=== PATIENT | female | born 1975 | race African-American/Black ===

== ENCOUNTER 2018-04-07 17:08 | Inpatient (IN) | payer OTHER ==
[2018-04-07] MEDS ORDERED: NS 0.9% 1000 ML** 1,000 ML IV ONE (21:04)
--- NOTE | 2018-04-07 21:05 | ED ---
GI/ HPI - HPI Summary HPI Summary: 42 year old female presents with right flank pain today. States she was diagnosed with UTI 2 days ago by her primary. She states she has taken 4 doses of bactrim. She states that urgency and dysuria continues to persist even on antibiotics. She denies any fevers. She admits to little bit nausea but denies any vomiting. she denies any abnormal vaginal discharge. she denies any cough, chest pain, or SOB. denies any history of kidney stones. She denies any history of kidney infections. She has a history of seizures. - History of Current Complaint Chief Complaint: EDFlankPain Time Seen by Provider: 04/07/18 20:54 Stated Complaint: RIGHT FLANK PAIN Hx Last Menstrual Period: 02/19/16 Pain Intensity: 0 - Allergy/Home Medications Allergies/Adverse Reactions: Allergies Allergy/AdvReac Type Severity Reaction Status Date / Time No Known Allergies Allergy Verified 04/07/18 17:26 Home Medications: Home Medications Adalimumab (NF) [Humira Pen (NF)] 40 mg SUBCUT DAILY 04/07/18 [History Confirmed 04/07/18] Folic Acid 1 mg PO DAILY 04/07/18 [History Confirmed 04/07/18] levETIRAcetam [Levetiracetam ER] 750 mg PO BID 04/07/18 [History Confirmed 04/07] PMH/Surg Hx/FS Hx/Imm Hx Endocrine/Hematology History: Denies: Hx Diabetes, Hx Thyroid Disease Cardiovascular History: Denies: Hx Hypertension, Hx Pacemaker/ICD Respiratory History: Denies: Hx Asthma, Hx Chronic Obstructive Pulmonary Disease (COPD) GI History: Denies: Hx Ulcer History: Denies: Hx Dialysis, Hx Renal Disease Sensory History: Denies: Hx Hearing Aid Neurological History: Reports: Hx Seizures Psychiatric History: Denies: Hx Panic Disorder - Cancer History Hx Chemotherapy: No Hx Radiation Therapy: No - Surgical History Surgery Procedure, Year, and Place: 2000 YRS AGO. D&C 09/2012 Infectious Disease History: No Infectious Disease History: Denies: Hx Clostridium Difficile, Hx Hepatitis, Hx Human Immunodeficiency Virus (HIV), Hx Shingles, Hx Tuberculosis, Traveled Outside the [place] in Last 30 Days - Family History Known Family History: Positive: None Family History: no cardio vascular disease in family lineage - Social History Alcohol Use: None Substance Use Type: Reports: None Smoking Status (MU): Never Smoked Tobacco Have You Smoked in the Last Year: No Review of Systems Negative: Fever Negative: Chest Pain Negative: Shortness Of Breath Positive: Nausea. Negative: Abdominal Pain, Vomiting, Diarrhea Positive: dysuria, flank pain All Other Systems Reviewed And Are Negative: Yes Physical Exam Triage Information Reviewed: Yes Vital Signs On Initial Exam: Initial Vitals Temp Pulse Resp BP Pulse Ox 97.3 F 81 16 121/70 99 04/07/18 17:23 04/07/18 17:23 04/07/18 17:23 04/07/18 17:23 04/07/18 17:23 Vital Signs Reviewed: Yes Appearance: Positive: Well-Appearing Skin: Positive: Warm, Dry Head/Face: Positive: Normal Head/Face Inspection Eyes: Positive: Normal, Conjunctiva Clear ENT: Positive: Pharynx normal Respiratory/Lung Sounds: Positive: Clear to Auscultation, Breath Sounds Present Cardiovascular: Positive: Normal, RRR Abdomen Description: Positive: Nontender, Soft, CVA Tenderness (R). Negative: CVA Tenderness (L) Bowel Sounds: Positive: Present Musculoskeletal: Positive: Normal Neurological: Positive: Normal Psychiatric: Positive: Normal Diagnostics - Vital Signs Vital Signs Temp Pulse Resp BP Pulse Ox 04/07/18 19:54 97.5 F 74 16 107/62 100 04/07/18 17:23 97.3 F 81 16 121/70 99 - Laboratory Result Diagrams: 04/07/18 21:28 04/07/18 21:28 Lab Statement: Any lab studies that have been ordered have been reviewed, and results considered in the medical decision making process. - CT abd CT Interpretation Completed By: Radiologist Summary of CT Findings: IMPRESSION: 1. Findings suggesting recently passed or non-radiopaque right ureteral. calculus. 2. Left nephrolithiasis. GIGU Course/Dx - Course Course Of Treatment: 42 year old female presents with right flank pain today. She was dx with UTI and for the past 2 days has been on Bactrim. No fevers. Notes nausea. On exam tenderness in the right flank. wbc 12. crp elevated. Urine shows a UTI. CT shows straining likely due to pyelo. Gave dosed of Rocephin. Discussed with hospitalist who agreed to admit due to failing outpatient treatment. - Diagnoses Differential Diagnoses - Female: Pyelonephritis, Urinary Tract Infection, Ureteral Calculi Provider Diagnoses: Pyelonephritis Discharge - Sign-Out/Discharge Documenting (check all that apply): Patient Departure - Discharge Plan Condition: Stable Disposition: ADMITTED TO [facility] - Billing Disposition and Condition Condition: STABLE Disposition: Admitted to [facility]
[2018-04-07 21:14] LABS: Urine Appearance Cloudy; Urine Bacteria 1+ (Absent); Urine Bilirubin Negative (Negative); Urine Blood 2+ (Negative); Urine Color Yellow; Urine Glucose Negative (Negative); Urine Ketones 1+ (Negative); Urine Nitrite Negative (Negative); Urine Protein 2+(100 mg/dL) (Negative); Urine Red Blood Cell 3+(>10/hpf) (Absent); Urine Specific Gravity 1.012 (1.010-1.030); Urine Squamous Epithelial Cell Present (Absent); Urine Urobilinogen Negative (Negative); Urine White Blood Cell 3+(>20/hpf) (Absent)
[2018-04-07 21:39] LABS: ABS Basophils 0.1 10^3/ul (0-0.2); ABS Eosinophils 0.1 10^3/ul (0-0.6); ABS Lymphocytes 3.3 10^3/ul (1.0-4.8); ABS Monocytes 0.6 10^3/ul (0-0.8); ABS Neutrophils 8.4 10^3/ul (1.5-7.7); ABS Nucleated RBC 0 10^3/ul; Eosinophil % 0.7 %; Hematocrit 38 % (35-47); Hemoglobin 12.1 g/dl (12.0-16.0); Lymphocyte % 26.2 %; Mean Corpuscular HGB Conc 32 g/dl (31-36); Mean Corpuscular Hemoglobin 26 pg (27-31); Mean Corpuscular Volume 80 fL (80-97); Mean Platelet Volume 8.4 fL (7.4-10.4); Nucleated Red Blood Cells % 0; Platelet Count 237 10^3/ul (150-450); Red Cell Distribution Width 14 % (10.5-15); White Blood Count 12.4 10^3/ul (3.5-10.8)
[2018-04-07] MEDS ORDERED: cefTRIAXone(*) 1 GM in NS 0.9% 50 ML* 50 ML IVPB ONE (21:41)
[2018-04-07 21:57] LABS: Albumin 4.2 g/dL (3.2-5.2); Albumin/Globulin Ratio 1.4 (1-3); BUN/Creatinine Ratio 11.4 (8-20); C Reactive Protein 30.04 mg/L (<8.01); Calcium 9.1 mg/dL (8.6-10.3); EGFR African American 86.1 (>60); EGFR Non-African American 71.2 (>60); Globulin 2.9 g/dL (2-4); Potassium 3.9 mmol/L (3.5-5.0); Total Bilirubin 0.4 mg/dL (0.2-1.0); Total Protein 7.1 g/dL (6.4-8.9)
[2018-04-07 22:04] LABS: HCG Pregnancy 4.24 mIU/mL
[2018-04-07] MEDS ORDERED: Ketorolac INJ* 30 MG/ML 1 ML VIAL IV PUSH ONE (22:31)
[2018-04-08] MEDS ORDERED: Ondansetron INJ* 2 MG/ML VIAL IV PRN (01:13)
[2018-04-08] MEDS ORDERED: Acetaminophen TAB* 325 MG PO PRN (01:13)
[2018-04-08] MEDS ORDERED: Morphine VIAL* 4 MG/ML VIAL (1 ml vial) IV PRN (01:14)
[2018-04-08] MEDS: NS 0.9% 1000 ML** 1,000 ML IV SCH ×3 (03:04→21:33)
--- NOTE | 2018-04-08 03:40 | HP ---
CC: Dr. Steven Shultz HISTORY AND PHYSICAL: DATE OF ADMISSION: 04/08/18 PRIMARY CARE PROVIDER: Dr. Steven Shultz. CHIEF COMPLAINT: Right flank pain and burning with urination. HISTORY OF PRESENT ILLNESS: This is a 42-year-old female with past medical history of seizure disord er, rheumatoid arthritis, on Humira, who now presents to the emergency room because of right flank pa in associated with dysuria. The patient states that about 2 days ago she was started on Bactrim for urinary tract infection; however, she comes to the emergency room now because her symptoms are persis tent and getting worse. The patient reports that she has been having right flank pain, progressively worsening, 8/10, dull pain, with no radiation, no exaggerating factor, partially relieved by pain me dication. This is associated with chills, nausea. There is no fever. She is having burning upon ur ination and some hesitancy with urination. PAST MEDICAL HISTORY: 1. Seizures. 2. Rheumatoid arthritis. PAST SURGICAL HISTORY: . MEDICATIONS: Include: 1. Keppra 750 mg twice a day. 2. Folic acid 1 mg daily. 3. Humira 40 mg every 2 weeks. ALLERGIES: No known drug allergies. FAMILY HISTORY: Mother: Pre-diabetes. Father: Diabetes, heart issues. SOCIAL HISTORY: The patient lives at home, does not smoke, occasional alcohol use. REVIEW OF SYSTEMS: There is no fever; however, she is having chills. No changes in her vision or he aring, no sore throat. No chest pain, no palpitations, no shortness of breath, no cough, no sputum p roduction. There is no abdominal pain. She is having flank pain, dysuria, and hesitancy as described above as well as urgency. She does not have any headaches, no focal weakness or numbness, no rashes or lesions. A full review of systems was done, otherwise is negative and is listed already. PHYSICAL EXAMINATION GENERAL: This is a well-developed, well-nourished, overweight female, lying in an ER stretcher, in n o acute distress. VITAL SIGNS: Blood pressure of 107/65, heart rate of 76, respiratory rate of 18, pulse ox of 98% on room air, temperature of 98.8 Fahrenheit, T-max of 98.8. HEENT: Pupils are equal, round, reactive to light. Atraumatic, normocephalic. LUNGS: There is no tachypnea. No use of accessory muscles. Lungs are clear to auscultation bilater ally without any wheezing, rales, or rhonchi. HEART: There is no chest wall tenderness. Regular rate and rhythm. No murmurs, rubs, or gallops. ABDOMEN: Bowel sounds are normoactive in all 4 quadrants. Abdomen is soft, nontender, nondistended. There is right CVA tenderness. There is no suprapubic tenderness, no suprapubic fullness. EXTREMITIES: No lower extremity edema, no calf tenderness. NEUROLOGIC: Alert and oriented x3 with no focal neurological deficits. SKIN: There are no rashes or lesions appreciated. DIAGNOSTIC STUDIES/LAB DATA: White blood cell count of 12.4, platelets of 237, hemoglobin of 12.1, absolute neutrophil count of 8.4. Sodium of 134, potassium of 3.9, BUN of 10, creatinine of 0.88, CR P of 30.04, lactic acid of 0.5. Urinalysis shows protein of 2+, she is having leukocyte esterase of 3+, urine wbc of 3, urine bacteria 1+, rbc of 3+. The patient underwent an abdomen and pelvis CAT scan, which showed findings suggestive of recently pa ssed, nonradiopaque right ureteral calculus and left nephrolithiasis, there is no evidence or mention of hydronephrosis. IMPRESSION AND PLAN: 1. The patient is having complicated urinary tract infection, failed outpatient therapy. For this r susan, we will make this patient inpatient status, start the patient on IV fluids, IV Rocephin, follo w up cultures. 2. Kidney stones. IV fluids, pain control. 3. History of seizures. Continue Keppra. 4. History of rheumatoid arthritis, takes Humira biweekly. Continue folic acid. 5. Regular diet, activity as tolerated. [id number]/[facility] #: [id number]
[2018-04-08] MEDS ORDERED: Adalimumab (NF) 40 MG/0.8 ML KIT _- DISPENSE @ no charge- _ SUBCUT SCH (09:00)
[2018-04-08] MEDS: Folic Acid TAB* 1 MG PO SCH (09:15)
[2018-04-08] MEDS: CMCS:Levetiracetam XR TAB(NF) 750 MG TAB.XR PO SCH ×2 (09:15→20:16)
--- NOTE | 2018-04-08 13:39 | PN ---
Subjective Date of Service: 04/08/18 Interval History: Patient is feeling better today. Decreased abdominal pain. No more dysuria. No Hematuria. Patient is having intermittent chills. Patient denies Subjective fevers, dizziness, palpitations, Cp, SOB, or other pain. Patient does not have frequent UTI. Family History: Unchanged from Admission Social History: Unchanged from Admission Past Medical History: Unchanged from Admission Objective Active Medications: Acetaminophen (Tylenol Tab*) 650 mg PO Q6H PRN PRN Reason: FEVER/PAIN Last Admin: 04/08/18 12:19 Dose: 650 mg Folic Acid (Folvite Tab*) 1 mg PO DAILY [facility] Last Admin: 04/08/18 09:15 Dose: 1 mg Sodium Chloride (Ns 0.9% 1000 Ml) 1,000 mls @ 125 mls/hr IV PER RATE [facility] Last Admin: 04/08/18 12:22 Dose: 125 mls/hr Ceftriaxone Sodium 1 gm/ (Sodium Chloride) 50 mls @ 200 mls/hr IVPB Q24H [facility] Levetiracetam (Keppra Xr (Nf)) 750 mg PO BID [facility]; Protocol Last Admin: 04/08/18 09:15 Dose: 750 mg Morphine Sulfate (Morphine Vial*) 1 mg IV Q4H PRN PRN Reason: SEVERE PAIN Last Admin: 04/08/18 03:04 Dose: 1 mg Ondansetron HCl (Zofran Inj*) 4 mg IV Q6H PRN PRN Reason: NAUSEA Vital Signs - 8 hr 04/08/18 04/08/18 04/08/18 07:30 07:43 11:31 Temperature 98.0 F 97.7 F Pulse Rate 76 79 Respiratory 16 18 20 Rate Blood Pressure 100/57 95/55 (mmHg) O2 Sat by Pulse 99 99 Oximetry Oxygen Devices in Use Now: None Appearance: Patient is a 42yo female who appears stated age and is sitting in the bed in [facility]. Eyes: No Scleral Icterus, PERRLA Ears/Nose/Mouth/Throat: NL Teeth, Lips, Gums, Clear Oropharnyx, Mucous Membranes Moist Neck: NL Appearance and Movements; NL JVP, Trachea Midline Respiratory: Symmetrical Chest Expansion and Respiratory Effort, Clear to Auscultation Cardiovascular: NL Sounds; No Murmurs; No JVD, RRR, No Edema Abdominal: NL Sounds; No Tenderness; No Distention, No Hepatosplenomegaly, - - No CVA tenderness. Lymphatic: No Cervical Adenopathy Extremities: No Edema, No Clubbing, Cyanosis Skin: No Rash or Ulcers, No Nodules or Sclerosis Neurological: Alert and Oriented x 3, NL Sensation, NL Muscle Strength and Tone , - - CN II-XII intact. Result Diagrams: 04/07/18 21:28 04/07/18 21:28 Assess/Plan/Problems-Billing Assessment: Patient is a 42yo female with a PMH for RA and seizures who is admitted to the hospital for pyelonephritis with sepsis and is improving greatly with IV fluids and antibiotics. - Patient Problems (1) Pyelonephritis Current Visit: Yes Status: Acute Code(s): N12 - TUBULO-INTERSTITIAL NEPHRITIS, NOT SPCF ACUTE OR CHRONIC SNOMED Code(s): 56664942 Comment: - Evidence on CT scan with positive urinalysis - Continue ceftriaxone - Awaiting culture and sensitivity - Immunocompromised from Humira/RA (2) Rheumatoid arthritis Current Visit: Yes Status: Acute Code(s): M06.9 - RHEUMATOID ARTHRITIS, UNSPECIFIED SNOMED Code(s): 45603242 Comment: - No signs of active disease - Continue Humira when acute bacterial infection improved. (3) Seizures Current Visit: Yes Status: Acute Code(s): R56.9 - UNSPECIFIED CONVULSIONS SNOMED Code(s): 21769258 Comment: - Continue Keppra (4) DVT prophylaxis Current Visit: Yes Status: Acute Code(s): VIO9091 - SNOMED Code(s): 513115352 Comment: - Low risk, Encourage ambulation. (5) Full code status Current Visit: Yes Status: Acute Code(s): Z78.9 - OTHER SPECIFIED HEALTH STATUS SNOMED Code(s): 790882276 Status and Disposition: Inpatient for treatment of Pyelonephritis.
[2018-04-08] MEDS ORDERED: Ketorolac INJ* 15 MG/ML 1 ML VIAL IV PUSH PRN (20:37)
[2018-04-08] MEDS ORDERED: Melatonin 3 MG TAB PO PRN (21:00)
[2018-04-08] MEDS ORDERED: cefTRIAXone(*) 1 GM in NS 0.9% 50 ML* 50 ML IVPB SCH (21:00)
[2018-04-09 06:13] LABS: ABS Basophils 0 10^3/ul (0-0.2); ABS Eosinophils 0 10^3/ul (0-0.6); ABS Lymphocytes 1.6 10^3/ul (1.0-4.8); ABS Monocytes 0.3 10^3/ul (0-0.8); ABS Neutrophils 2.8 10^3/ul (1.5-7.7); ABS Nucleated RBC 0 10^3/ul; Hematocrit 33 % (35-47); Hemoglobin 10.7 g/dl (12.0-16.0); Lymphocyte % 33.2 %; Mean Corpuscular HGB Conc 33 g/dl (31-36); Mean Corpuscular Hemoglobin 26 pg (27-31); Mean Corpuscular Volume 80 fL (80-97); Mean Platelet Volume 8.1 fL (7.4-10.4); Nucleated Red Blood Cells % 0.1; Platelet Count 172 10^3/ul (150-450); Red Blood Count 4.09 10^6/ul (4.00-5.40); Red Cell Distribution Width 13 % (10.5-15); White Blood Count 4.8 10^3/ul (3.5-10.8)
[2018-04-09 06:30] LABS: BUN/Creatinine Ratio 6.8 (8-20); Calcium 8.8 mg/dL (8.6-10.3); EGFR African American 136.6 (>60); EGFR Non-African American 112.9 (>60); Magnesium 1.7 mg/dL (1.9-2.7); Potassium 3.9 mmol/L (3.5-5.0)
[2018-04-09] MEDS ORDERED: Magnesium Sulfate IV* 3 GM in NS 0.9% 100 ML* 100 ML IVPB ONE (07:31)
[2018-04-09] MEDS: CMCS:Levetiracetam XR TAB(NF) 750 MG TAB.XR PO SCH (08:15)
[2018-04-09] MEDS: Folic Acid TAB* 1 MG PO SCH (08:15)
[2018-04-09] MEDS: NS 0.9% 1000 ML** 1,000 ML IV SCH (08:15)
[2018-04-09 08:23] VITALS: BP 108/70
--- NOTE | 2018-04-09 22:40 | DS ---
CC: Dr. Steven Shultz * DISCHARGE SUMMARY: DATE OF ADMISSION: 04/08/18 DATE OF DISCHARGE: 04/09/18 PRIMARY CARE PROVIDER: Dr. Steven Shultz. MY ATTENDING WHILE IN THE HOSPITAL: Dr. Britney Bingham.* (DICTATED BY MAGDIEL GONZALES) PRIMARY DISCHARGE DIAGNOSIS: Pyelonephritis. SECONDARY DISCHARGE DIAGNOSES: 1. History of seizures. 2. Rheumatoid arthritis. STUDIES DONE WHILE IN THE HOSPITAL: 1. Abdomen and pelvis CT from 04/07/18, read as findings suggestive of recently passed nonradiopaque right ureteral calculus and left nephrolithiasis. 2. There is also perinephric stranding on the right side. MEDICATIONS AT DISCHARGE: 1. Keppra 750 mg p.o. b.i.d. 2. Folic acid 1 mg p.o. daily. 3. Tylenol 650 mg p.o. q.6 hours as needed. 4. Cefpodoxime 200 mg p.o. q.12 hours x11 doses. 5. Melatonin 3 mg p.o. at bedtime as needed. Medications discontinued at discharge: Humira. New medications at discharge: Cefpodoxime and melatonin. HOSPITAL COURSE: This is a brief summary of the patient's presentation. For more details, please see history and physical from Dr. Nancy Santos on . In brief, the patient is a 42-year-old female with past medical history significant for the above, who presented to the emergency department with right flank pain associated with dysuria. The patient had seen her primary care provider for these symptoms, who started her on Bactrim without improvement in her pain. The patient rated the pain at 8/10. The patient had no fevers, tachycardia, hypertension or other signs of sepsis. The patient was admitted to the hospital and started on IV ceftriaxone. The patient had been given fluids. The patient had [place]ork improvement in her pain. The patient had an urinalysis consistent with urinary tract infection. No provoking behavior was identified for the patient's urinary tract infection. The patient had no significant valvular abnormalities except for slight anemia and elevated CRP. The patient's urine culture grew some 50 to 75,000 colonies of E. coli, which was very resistant to Bactrim but susceptible to cephalosporins. The patient was stable and amenable for discharge on 04/09/18. PHYSICAL EXAM ON THE DAY OF DISCHARGE: General: The patient is a 42-year-old female, who appears stated age, sitting comfortably on the bed, in no acute distress. HEENT: Head: Normocephalic, atraumatic. Sclerae anicteric. No conjunctival injection. Nasal mucosa is moist. Oral mucosa moist. No pharyngeal erythema, discharge or exudate. Neck: Supple, nontender. No lymphadenopathy. No carotid bruits auscultated. No JVD. Cardiac: Regular rate and rhythm. No clicks, murmurs, gallops or rubs. Pulses 2+ in the bilateral dorsalis pedis, posterior tibialis and radial areas. Respiratory: Clear to auscultation bilaterally. No wheezes, rales or rhonchi. Good air exchange bilaterally. Abdomen: Soft, nontender, nondistended. Bowel sounds present and active in all 4 quadrants. No hepatosplenomegaly. No abdominal bruits auscultated. No hepatojugular reflux. Genitourinary: No suprapubic or CVA tenderness. Skin: Clean, dry, and intact. No rash. Neuro: Cranial nerves II through XII intact. No focal deficits, oriented x3. Psychiatric: Very pleasant and cooperative. DISCHARGE PLAN: The patient will be discharged to home. The patient will continue a 1-week course of cefpodoxime with the first dose starting on the evening of 04/09/18. The patient was due for a dose of Humira on the day of discharge. It has been discussed with the patient that she should follow up with her primary care provider in one week and discuss when to restart her Humira. The patient should definitely not take Humira while she is on antibiotics or has an active infection. The patient was borderline hypotensive upon her discharge from the hospital. The patient was encouraged to drink plenty of fluids and be careful upon standing. The patient was asymptomatic. The patient should return to the hospital for significantly worsening abdominal pain, high fever unresponsive to Tylenol or other alarming symptoms. The patient should engage in activities as tolerated and have a regular heart- healthy diet. TIME SPENT: Approximately 45 minutes were spent on the discharge of this patient, 20 of which were spent [id number] with the patient obtaining history and physical and discussing treatment plan. MAGDIEL GONZALES [id number]/[facility] #: [id number] MIRIAM
== END 2018-04-09 13:25 | disposition home or self-care (01) | DRG 872 ==
LOC: ED 17:08 → MEDTELE 04-08 01:12
PROVIDERS: ADMIT Internal Medicine; ATTEND Internal Medicine
DX: A41.9 Sepsis, unspecified organism (principal); N10 Acute pyelonephritis; N39.0 Urinary tract infection, site not specified; B96.20 Unspecified Escherichia coli [E. coli] as the cause of diseases classified elsewhere; G40.909 Epilepsy, unspecified, not intractable, without status epilepticus; M06.9 Rheumatoid arthritis, unspecified; Z16.39 Resistance to other specified antimicrobial drug; Z79.899 Other long term (current) drug therapy; Z83.3 Family history of diabetes mellitus
CPT/HCPCS: 36415; 74176; 80048; 80053; 81003; 81015; 83605; 83735; 84702; 85025; 86140; 87040; 87077; 87086; 87186; 99284; A9270-GY; J0696; J1885; J2270; J3475

== ENCOUNTER 2018-08-25 19:13 | Emergency (ER) | payer OTHER ==
--- NOTE | 2018-08-25 22:34 | ED ---
- HPI Summary HPI Summary: A 43 y/o female presents to [facility] with a chief complaint of a possible miscarriage. The patient reports that her LNMP was 07/18/18. She says that last night she had some vaginal spotting but today she had some vaginal bleeding. She describes the blood as bright red with a few clots. She rated her pain as a 1/10 in severity. She also c/o abdominal pain but denies any urinary symptoms. - History of Current Complaint Chief Complaint: EDOBProblems Stated Complaint: POSSIBLE MISCARRIAGE PER PT Time Seen by Provider: 08/25/18 22:09 Hx Obtained From: Patient Chief Complaint: Vaginal Bleeding Onset/Duration: Started Hours Ago, Still Present Timing: Constant, Lasting Hours Severity: Mild Current Severity: Mild Pain Intensity: 1 - out of 10 Location of Pain: Suprapubic Character: Other: - unable to describe Aggravating Factors: Nothing Alleviating Factors: Nothing Associated Signs and Symptoms: Positive: Vaginal Bleeding or Discharge. Negative: Fever - Assessment Hx Now: No Hx Hysterectomy: No - Additional Pertinent History Primary Care Physician: PRIMO - Allergies/Home Medications Allergies/Adverse Reactions: Allergies Allergy/AdvReac Type Severity Reaction Status Date / Time No Known Allergies Allergy Verified 08/25/18 19:26 PMH/Surg Hx/FS Hx/Imm Hx Endocrine/Hematology History: Denies: Hx Diabetes, Hx Thyroid Disease Cardiovascular History: Denies: Hx Hypertension, Hx Pacemaker/ICD Respiratory History: Denies: Hx Asthma, Hx Chronic Obstructive Pulmonary Disease (COPD) GI History: Denies: Hx Ulcer History: Denies: Hx Dialysis, Hx Renal Disease Sensory History: Denies: Hx Contacts or Glasses, Hx Hearing Aid Opthamlomology History: Denies: Hx Contacts or Glasses Neurological History: Reports: Hx Seizures Psychiatric History: Denies: Hx Panic Disorder - Cancer History Hx Chemotherapy: No Hx Radiation Therapy: No - Surgical History Surgery Procedure, Year, and Place: 2001 YRS AGO. D&C 09/2012 Infectious Disease History: No Infectious Disease History: Denies: Hx Clostridium Difficile, Hx Hepatitis, Hx Human Immunodeficiency Virus (HIV), Hx Shingles, Hx Tuberculosis, Traveled Outside the [place] in Last 30 Days - Family History Known Family History: Negative: Cardiac Disease Family History: no cardio vascular disease in family lineage - Social History Alcohol Use: None Substance Use Type: Reports: None Smoking Status (MU): Never Smoked Tobacco Have You Smoked in the Last Year: No Review of Systems Negative: Fever Positive: Abdominal Pain Positive: other - positive: vaginal bleeding. Negative: dysuria, hematuria All Other Systems Reviewed And Are Negative: Yes Physical Exam - Summary Physical Exam Summary: VITAL SIGNS: Reviewed. GENERAL: Patient is a well-developed and nourished FEMALE who is lying comfortable in the stretcher. Patient is not in any acute respiratory distress. HEAD AND FACE: No signs of trauma. No ecchymosis, hematomas or skull depressions. No sinus tenderness. EYES: PERRLA, EOMI x 2, No injected conjunctiva, no nystagmus. EARS: Hearing grossly intact. Ear canals and tympanic membranes are within normal limits. MOUTH: Oropharynx within normal limits. NECK: Supple, trachea is midline, no adenopathy, no JVD, no carotid bruit, no c- spine tenderness, neck with full ROM CHEST: Symmetric, no tenderness at palpation LUNGS: Clear to auscultation bilaterally. No wheezing or crackles. CVS: Regular rate and rhythm, S1 and S2 present, no murmurs or gallops appreciated. ABDOMEN: Soft, suprapubic tenderness. No signs of distention. No rebound no guarding, and no masses palpated. Bowel sounds are normal. EXTREMITIES: FROM in all major joints, no edema, no cyanosis or clubbing. NEURO: Alert and oriented x 3. No acute neurological deficits. Speech is normal and follows commands. SKIN: Dry and warm - Physical Exam Triage Information Reviewed: Yes Vital Signs Reviewed: Yes Diagnostics - Vital Signs Vital Signs Temp Pulse Resp BP Pulse Ox 08/25/18 19:23 97.8 F 83 16 123/85 99 - Laboratory Result Diagrams: 08/25/18 22:59 08/25/18 22:59 Lab Statement: Any lab studies that have been ordered have been reviewed, and results considered in the medical decision making process. - Ultrasound No standard instances Ultrasound Interpretation Completed By: Radiologist Summary of Ultrasound Findings: Transvaginal ultrasound impression: of unknown location, including ectopic. Alternatively findings could. represent a complete miscarriage. Serial beta-hCG and followup ultrasound in. 7 -10 days recommended. ED physician has reviewed this imaging report. Re-Evaluation - Re-Evaluation First Eval Re-Evaluation Time: 01:34 Change: Unchanged Comment: Discussed results Course/Dx - Course Course Of Treatment: A 43 y/o female presents to [facility] with a chief complaint of a possible miscarriage. She says that last night she had some vaginal spotting but today she had some vaginal bleeding. The physical exam revealed suprapubic tenderness. Transvaginal ultrasound impression: of unknown location, including ectopic. Alternatively findings could. represent a complete miscarriage. Serial beta-hCG and followup ultrasound in. 7-10 days recommended. Blood work, chemistries and UA obtained. The patient's beta HCG is 7. This could mean several things including early , complete or ectopic She was advised to follow up with RESEARCH PROGRAM COORDINATOR to repeat beta HCG. Pt has no UTI like symptoms and the urine sample is contamintated. She will not be treated for UTI at this time. The patient will be discharged and is agreeable with this plan. - Diagnoses Provider Diagnoses: Early stage of Discharge - Sign-Out/Discharge Documenting (check all that apply): Patient Departure - DC Patient Received Moderate/Deep Sedation with Procedure: No - Discharge Plan Condition: Stable Disposition: HOME Referrals: Steven Shultz MD [Primary Care Provider] - 3 Days Additional Instructions: Follow up with your RESEARCH PROGRAM COORDINATOR on Monday or Monday for repeat Beta HCG testing. PLEASE RETURN TO THE ED IMMEDIATELY FOR WORSENING OR CONCERNING SYMPTOMS. - Billing Disposition and Condition Condition: STABLE Disposition: Home - Attestation Statements Document Initiated by John: Yes Documenting Scribe: Mika Carranza Provider For Whom John is Documenting (Include Credential): Madison Méndez MD Scribe Attestation: I, armida Sanchezibed for Madison Méndez MD on 08/26/18 at 0514. Scribe Documentation Reviewed: Yes Provider Attestation: The documentation as recorded by the Mika guadarrama accurately reflects the service I personally performed and the decisions made by me, Madison Méndez MD Status of Scribanna marie Document: Viewed
[2018-08-25 23:08] LABS: ABS Basophils 0.1 10^3/ul (0-0.2); ABS Eosinophils 0.2 10^3/ul (0-0.6); ABS Lymphocytes 4.1 10^3/ul (1.0-4.8); ABS Monocytes 0.5 10^3/ul (0-0.8); ABS Neutrophils 8.1 10^3/ul (1.5-7.7); Eosinophil % 1.7 %; Hematocrit 35 % (35-47); Hemoglobin 11.5 g/dL (12.0-16.0); Lymphocyte % 31.3 %; Mean Corpuscular HGB Conc 33 g/dL (31-36); Mean Corpuscular Hemoglobin 26 pg (27-31); Mean Corpuscular Volume 79 fL (80-97); Nucleated Red Blood Cells % 0.1; Platelet Count 262 10^3/uL (150-450); Red Blood Count 4.44 10^6 /uL (3.70-4.87); Red Cell Distribution Width 15 % (10-15)
[2018-08-25 23:26] LABS: Albumin 3.9 g/dL (3.2-5.2); Albumin/Globulin Ratio 1.3 (1-3); BUN/Creatinine Ratio 15.9 (8-20); Calcium 8.8 mg/dL (8.6-10.3); EGFR African American 113.4 (>60); EGFR Non-African American 93.8 (>60); Potassium 3.4 mmol/L (3.5-5.0); Total Bilirubin 0.2 mg/dL (0.2-1.0); Total Protein 6.9 g/dL (6.4-8.9)
[2018-08-25 23:33] LABS: HCG Pregnancy 7.73 mIU/mL
[2018-08-26 00:23] LABS: Urine Appearance Clear; Urine Bacteria 1+ (Absent); Urine Bilirubin Negative (Negative); Urine Blood 3+ (Negative); Urine Color Straw; Urine Glucose Negative (Negative); Urine Ketones Trace (Negative); Urine Nitrite Negative (Negative); Urine Protein Negative (Negative); Urine Red Blood Cell 3+(>10/hpf) (Absent); Urine Specific Gravity 1.009 (1.010-1.030); Urine Squamous Epithelial Cell Present (Absent); Urine Urobilinogen Negative (Negative); Urine White Blood Cell 1+(6-10/hpf) (Absent)
[2018-08-26 01:49] VITALS: BP 0/0
== END 2018-08-26 01:47 | disposition home or self-care (01) ==
LOC: ED 19:13
DX: Z34.91 Encounter for supervision of normal pregnancy, unspecified, first trimester (principal)
CPT/HCPCS: 36415; 76817; 80053; 81003; 81015; 84702; 85025; 86850; 86900; 86901; 87086; 99282

== ENCOUNTER 2019-05-23 11:09 | Inpatient (IN) | payer OTHER ==
[2019-05-23] MEDS ORDERED: Buffered Lidocaine 1% SYRIN* 1 ML/SYRINGE INTRADERM ONE (12:41)
[2019-05-23] MEDS ORDERED: Lactated Ringers 1000 ML Bag* 1,000 ML IV ONE ×2 (12:41→22:33)
[2019-05-23] MEDS ORDERED: Oxytocin in LR* 20 UNITS/1,000 ML BAG IVPB SCH (13:00)
--- NOTE | 2019-05-23 13:01 | HP ---
General Information - Reason for Visit Rupture of membranes in labor - General Information Maternal Age: 43 Grav: 5 Para: 3 SAB: 1 Estimated Due Date: 06/05/19 Determined By: Early Ultrasound Gestational Age in Weeks/Days: 38w1d Maternal Blood Type and Rh: AB Positive - Results this Serology/RPR Result: Non-Reactive Rubella Result: Immune HBsAg Result: Negative HIV Result: Negative GBS Culture Result: Negative Past Medical History Delivery History: Hx C/Section - Hx of in 03/31 NRFHT, successful 2002 and 2008, See Records Pertinent Past Medical History: See Records - Hx of Seizure D/O, Hx of RA Pertinent Past Surgical History: See Records Pertinent Family History: See Records - Antepartal Records Antepartal Records: Reviewed, Complicated by: - Hx of x 1, Seizure D/O Review of Systems Constitutional: Comfortable CV Complaint: No Respiratory: Shortness of Breath: No Gastrointestinal: No Nausea/Vomiting, Normal Bowel Movement Genitourinary: Leaking Fluid, No Dysuria, No Bleeding Musculoskeletal: No Complaint, No Epigastric Pain Neurological: No Headache, No Visual Changes Movement: Normal Exam Allergies/Adverse Reactions: Allergies No Known Allergies Allergy (Verified 05/23/19 12:38) T 98 Pulse 81 RR 18 BP 111/64 02 Sat 100% Lab Values - Entire Visit: Laboratory Tests 05/23/19 11:44 Vag Amniotic Fld Detect Positive - Measurements Height: 5 ft 3 in Weight: 179 lb Body Mass Index (BMI): 31.6 - Exam Breast: Breast Exam Deferred CVA: No CVA Tenderness Extremities: No Edema Heart: Normal Rhythm/Heart Sounds HEENT: No Significant Findings Lungs: Clear Bilaterally Rectal: Rectal Exam Deferred Reflexes: DTR 2+ Thyroid: No Thyromegaly - Abdominal Exam Abdomen Exam: Non-Tender, Fundal Height Consistent with Dates - Ultrasound/Biophysical Profile Ultrasound Status: Bedside Exam Ultrasound Findings: Vertex Targeted Exam Findings Estimated Weight: 7#8oz Presenting Part: Vertex - SVE deferred secondary to rupture Membrane Status: SROM Amniotic Fluid Evaluation: Positive ROM Plus Bleeding/Discharge: None EFM Findings - External Monitor Findings Baseline Heart Rate: 145 External Monitor Findings: Accelerations Present, No Pattern of Variable or Late Decelerations, Variability Moderate, Baseline Stable External Monitor Findings Comment: Category I FHT Contractions: Irregular, Moderate, 45-90 Seconds Assessment/Plan - Assessment 43 y/o with hx of x 1 and successful x 2, presents with ruptured membranes in labor Category I FHT Vertex - Obstetrical Risk Factors Obstetrical Risk Factors: Previous C/Section in Labor - Advanced maternal age - Plan Plan: Observe - will augment with pitocin if indicated Plan Comment: Carefully discussed r/b/a of TOLAC versus repeat . Pt has history of x 1 followed by 2 successful 's. She is a reasonable candidate for TOLAC. SVE deferred secondary to ROM in early labor, contractions are picking up in frequency and intensity - will observe and augment with Pitocin if indicated Seizure Hx - continue Keppra ER 1500mg BID GBS negative RH+/RI - Date/Time of Admission Date of Admission: 05/23/19 Time of Admission: 13:00
--- NOTE | 2019-05-23 13:15 | PN ---
Progress Note - Progress Note Date of Service: 05/23/19 Note: Rupture was clear fluid at 10am
[2019-05-23 13:24] LABS: ABS Eosinophils 0.1 10^3/ul (0-0.6); ABS Lymphocytes 2.5 10^3/ul (1.0-4.8); ABS Monocytes 0.5 10^3/ul (0-0.8); ABS Neutrophils 8.3 10^3/ul (1.5-7.7); Eosinophil % 1.3 %; Hematocrit 36 % (35-47); Hemoglobin 11.9 g/dL (12.0-16.0); Lymphocyte % 21.9 %; Mean Corpuscular HGB Conc 33 g/dL (31-36); Mean Corpuscular Hemoglobin 28 pg (27-31); Mean Corpuscular Volume 83 fL (80-97); Mean Platelet Volume 8.8 fL (7.4-10.4); Nucleated Red Blood Cells % 0.1; Platelet Count 198 10^3/uL (150-450); Red Cell Distribution Width 16 % (10-15); White Blood Count 11.5 10^3/uL (3.5-10.8)
[2019-05-23 13:40] LABS: Urine Benzodiazepine Screen None Detected (None Detect); Urine Opiates Screen None Detected (None Detect)
--- NOTE | 2019-05-23 13:44 | CONSULT ---
Consult Consult: 43yo woman with PMH for prior C section 2/2 NRFHR, has had 2 prior since then, and is now presenting to labor suite in active labor to try a third . Other prior PMH significant for RA (in remission during , denies any cervical instability) and seizure x2 (last seizure was "years ago"). PMH : See above PSH : Splitter Tender procedure (polyp removal), epidural x2 ROS : see above, also denies any recent coughs, colds, fevers, CP, SOB. Vital Signs : Stable, BP 111/64, HR 87, RR 18, O2 sat 100, T 98F PE : Gen - pleasant CV - NMRG Pulm - CTABL Airway - Mal 3, good ROM in neck, TM dist > 6cm A/P: Dr. Blanco Vaughan has requested that we stay in house for active labor. The patient plans to have an epidural. I have discussed the procedure, alternatives, and all risks of epidural placement. She understands, asked questions, and knows that we are available to her when needed. - Vita Griffin, DO
--- NOTE | 2019-05-23 14:45 | PN ---
Progress Note - Progress Note Date of Service: 05/23/19 Note: Pt reema irregularly. FHT is 140bpm, moderate, +accels, no decels - Cat I Pt agrees to augmentation with low dose pitocin DO VALERIA Fitzgerald
[2019-05-23] MEDS: Lactated Ringers 1000 ML Bag* 1,000 ML IV SCH ×2 (16:04→21:32)
--- NOTE | 2019-05-23 20:30 | PN ---
Progress Note - Progress Note Date of Service: 05/23/19 Note: Pt becoming more uncomfortable with contractions. FHT is baseline 145bpm, moderate variability, + accels, no pattern of late or variable decels Contractions q 3-5 minutes; Pitocin at 6mU Cervix 2-3cm/70%/-2 Continue to titrate Pitocin OK for epidural when desired Re-examined as clinically indicated
[2019-05-23] MEDS: LEVETIRACETAM 500 MG PO SCH (21:04)
[2019-05-23] MEDS ORDERED: OBEPIDURAL* 250 ML EPIDURAL ONE (21:23)
[2019-05-23] MEDS ORDERED: Lactated Ringers 1000 ML Bag* 500 ML IV PRN ×2 (22:33)
[2019-05-23] MEDS ORDERED: Phenylephrine 40 MCG/ML SYRINGE IV PUSH PRN ×2 (22:33)
[2019-05-23] MEDS ORDERED: Famotidine TAB* 20 MG PO PRN (22:33)
[2019-05-23] MEDS ORDERED: Sodium Citrate/Citric Acid* 15 ML UDC PO PRN (22:33)
[2019-05-23] MEDS ORDERED: EPHEDrine (Pressors)* 50 MG/ML VIAL IV PUSH PRN ×2 (22:33)
--- NOTE | 2019-05-23 22:59 | PN ---
Progress Note - Progress Note Date of Service: 05/23/19 Note: Pt continuing to become more uncomfortable with contractions. Short trial of nitrous given, then pt requested epidural. Epidural placed without complications, pt now becoming significantly more comfortable. FHT is 130bpm moderate variability, + accels, no pattern of late or variable decels Pitocin is at 6mU; contractions q 3-5 minutes Continue to titrate Pitocin as able Re-examine as clinically indicated DO VALERIA Fitzgerald
[2019-05-23] MEDS ORDERED: Lactated Ringers 1000 ML Bag* 1,000 ML IV SCH (23:00)
[2019-05-23] MEDS ORDERED: OBEPIDURAL* 250 ML EPIDURAL SCH (23:00)
--- NOTE | 2019-05-24 02:04 | PROCNOTE ---
[facility] OB: Delivery Note - Delivery A Date of : 05/24/19 Time of : 01:25 [place] Sex: Male Weight at : 7 lb 8 oz Score 1 Minute: 9 Score 5 Minutes: 9 Gestational Age in Weeks and Days at Delivery: 38 Weeks and 2 Days Delivery Method: Spontaneous Vaginal Labor: Spontaneous Did Patient attempt ?: Yes, Successful Amniotic Fluid: Clear Estimated Blood Loss: 250 Anesthesia/Analgesia: CEI for Labor Delivered By: Blanco Vaughan JR - Nursery Level of Nursery: Regular/Bedside - Perineum Perineal Injury: 2nd Degree Perineal Injury Comment: repaired in usual fashion with 2-0 vicryl Perineal Repair: By Delivering Practioner - Events Delivery Events of Note: Pitocin During Labor - Additional Delivery Notes Additional Delivery Notes: Pt presented with ROM in early labor. Augmented with Pitocin. Received Epidural for pain control. Progressed to Fully dilated. Delivered after brief period of pushing. Sucessful . Placenta delivered spontaneously and in tact after period of delayed cord clamping. 3 VC. 2nd degree lac repaired in usual fashion with 2-0 vicryl suture. EBL 250ml. Mother and doing well at time of this note. DO VALERIA Fitzgerald
[2019-05-24] MEDS ORDERED: Glycerin ADULT SUPP PR PRN (02:06)
[2019-05-24] MEDS ORDERED: Lactated Ringers 1000 ML Bag* 1,000 ML IV SCH (03:00)
[2019-05-24] MEDS: Ibuprofen TAB* 600 MG PO PRN ×3 (03:24→16:46)
[2019-05-24] MEDS: Dibucaine 1% 28.35 GM TUBE PR PRN ×2 (03:24→09:31)
[2019-05-24] MEDS: Witch Hazel PAD* JAR TOPICAL PRN ×2 (03:24→09:31)
[2019-05-24] MEDS: Acetaminophen TAB* 325 MG PO PRN ×2 (08:26→20:20)
[2019-05-24] MEDS: Docusate CAP* 100 MG PO SCH ×3 (08:26→20:20)
[2019-05-24] MEDS ORDERED: Simethicone TAB* 80 MG TAB.CHEW PO SCH (08:30)
[2019-05-24] MEDS: LEVETIRACETAM 500 MG PO SCH ×2 (09:31→21:27)
[2019-05-24] MEDS ORDERED: oxyCODONE TAB* 5 MG TAB PO ONE (21:37)
[2019-05-25 06:08] LABS: ABS Eosinophils 0.3 10^3/ul (0-0.6); ABS Lymphocytes 3.5 10^3/ul (1.0-4.8); ABS Monocytes 0.4 10^3/ul (0-0.8); ABS Neutrophils 8.7 10^3/ul (1.5-7.7); Eosinophil % 2.3 %; Hematocrit 34 % (35-47); Hemoglobin 11.2 g/dL (12.0-16.0); Mean Corpuscular HGB Conc 33 g/dL (31-36); Mean Corpuscular Hemoglobin 27 pg (27-31); Mean Corpuscular Volume 83 fL (80-97); Mean Platelet Volume 7.8 fL (7.4-10.4); Platelet Count 191 10^3/uL (150-450); Red Blood Count 4.12 10^6 /uL (3.70-4.87); Red Cell Distribution Width 16 % (10-15); White Blood Count 12.9 10^3/uL (3.5-10.8)
[2019-05-25] MEDS: Ibuprofen TAB* 600 MG PO PRN ×2 (06:47→14:26)
[2019-05-25] MEDS: Acetaminophen TAB* 325 MG PO PRN (06:52)
[2019-05-25] MEDS ORDERED: Ferrous Gluconate TAB* 324 MG TAB PO SCH (09:00)
[2019-05-25] MEDS: Docusate CAP* 100 MG PO SCH ×3 (09:26→21:28)
[2019-05-25] MEDS: LEVETIRACETAM 500 MG PO SCH ×2 (09:26→21:28)
[2019-05-26] MEDS: Ibuprofen TAB* 600 MG PO PRN ×2 (00:10→09:41)
[2019-05-26 07:59] VITALS: BP 99/62
[2019-05-26] MEDS: LEVETIRACETAM 500 MG PO SCH (09:40)
[2019-05-26] MEDS: Docusate CAP* 100 MG PO SCH (09:41)
[2019-05-26] MEDS ORDERED: Tetan/Diph/Pertus SYR(Tdap)* 0.5 ML SYR(BOOSTRIX) use SYR contains LATEX IM ONE (12:24)
[2019-05-26] MEDS: Acetaminophen TAB* 325 MG PO PRN (13:02)
== END 2019-05-26 14:45 | disposition home or self-care (01) | DRG 807 ==
LOC: MCHOBOUT 11:09 → MCHOB 12:47
PROVIDERS: ADMIT Obstetrics & Gynecology; ATTEND Obstetrics & Gynecology
PROC: 10E0XZZ Delivery of Products of Conception, External Approach (ICD-10-PCS; principal; 2019-05-24)
PROC: 0KQM0ZZ Repair Perineum Muscle, Open Approach (ICD-10-PCS; 2019-05-24)
DX: O99.350 Diseases of the nervous system complicating pregnancy, unspecified trimester (principal); Z37.0 Single live birth; O42.02 Full-term premature rupture of membranes, onset of labor within 24 hours of rupture; O34.211 Maternal care for low transverse scar from previous cesarean delivery; O70.1 Second degree perineal laceration during delivery; Z3A.38 38 weeks gestation of pregnancy
CPT/HCPCS: 36415; 80307; 84112; 85025; 86850; 86900; 86901; 90715; A9270-GY; G0480